=== PATIENT | male | born 1980 | race African-American/Black ===

== ENCOUNTER 2023-12-14 12:48 | Emergency (ER) | payer MEDICAID, OTHER ==
[~2023-12-14] VITALS: Ht 188 cm; Wt 93.0 kg
[2023-12-14 12:51] VITALS: O2SAT 100
[2023-12-14] MEDS: KETOROLAC 60MG/2ML VIAL IM ONE (14:00)
[2023-12-14] MEDS ORDERED: IBUP-1525 MT (14:07)
[2023-12-14] MEDS ORDERED: ACET-2708 MT (14:07)
[2023-12-14] MEDS: HYDROCODONE/ACETAMINOPHEN 7.5/325MG TABLET PO ONE (14:20)
[2023-12-14 14:22] VITALS: BP 131/73; PULSE 76; RESP 18; TEMP 98.5
== END 2023-12-14 15:39 | disposition home or self-care (01) ==
LOC: ER 12:48
DX: K02.9 Dental caries, unspecified (principal)
CPT/HCPCS: 99283; 96372; J1885